=== PATIENT | male | born 1950 | race African-American/Black ===

== ENCOUNTER 2017-05-24 10:05 | Emergency (ER) | payer MEDICARE, OTHER ==
[~2017-05-24] VITALS: Ht 175.3 cm; Wt 81.8 kg
[~2017-05-24 10:05] MED LIST: GLAUCOMA EYE DROP; INDOCIN50 MG PO; NORCO 325 MG-51 TAB PO
[2017-05-24 10:21] VITALS: TEMP 97.8
[2017-05-24 11:25] LABS: BASO % 0.7 % (0.0-2.0); EOS # 0.1 (0.0-0.7); EOS % 1.7 % (0-4.0); GRAN # 2.7 (1.4-6.5); GRAN % 51.3 % (42.2-75.2); HEMATOCRIT 44.2 % (42.0-52.0); HEMOGLOBIN 14.5 g/dl (13.5-18.0); LYMPH # 2.1 (1.2-3.4); LYMPH % 38.4 % (20.0-51.0); MEAN CELL VOLUME 83 fl (80.0-100.0); MEAN CORPUSCULAR HEMOGLOBIN 27 pg (27.0-31.0); MEAN CORPUSCULAR HGB CONC 33 g/dl (33.0-37.0); MEAN PLATELET VOLUME 10.2 fl (7.4-10.4); MONO # 0.4 (0.1-0.6); MONO % 7.7 % (1.7-9.3); PLATELET COUNT 229 K/mm3 (130-400); RED BLOOD COUNT 5.32 M/mm3 (4.20-5.60); REDCELL DISTRIBUTION WIDTH-CV 12.8 % (11.5-14.5)
[2017-05-24 11:40] LABS: ALANINE AMINOTRANSFERASE 39 U/L (21-72); ALBUMIN 4.8 gm/dL (3.5-5.0); ALKALINE PHOSPHATASE 121 U/L (50-136); ANION GAP 12 mmol/L (7-16); AST,SGOT 21 U/L (15-37); BILIRUBIN,TOTAL 0.5 mg/dL (0.0-1.0); BLOOD UREA NITROGEN 18 mg/dL (9-20); CALCIUM 10.2 mg/dL (8.4-10.2); CARBON DIOXIDE 23 mmol/L (22-30); CHLORIDE 101 mmol/L (98-107); CREATININE, serum 0.99 mg/dL (0.66-1.25); GLUCOSE 361 mg/dL (74-106); POTASSIUM 4.5 mmol/L (3.4-5.0); SODIUM 135 mmol/L (137-145); TOTAL PROTEIN 8.1 gm/dL (6.4-8.2)
[2017-05-24 11:44] LABS: C-REACTIVE PROTEIN < 0.5 mg/dL (0.0-0.9)
[2017-05-24 11:52] LABS: ERYTHROCYTE SEDIMENTATION RATE 11 mm/hr (0-30)
[2017-05-24] MEDS ORDERED: NORCO 325 MG-7.1 TAB PO (11:58)
[2017-05-24 13:15] LABS: COLLECTION METHOD CLEAN CATCH
[2017-05-24 13:20] LABS: MUCOUS Present /lpf; PH 5 (5-8); SQUAMOUS EPITHELIAL None Seen /hpf; URINE APPEARANCE Clear; URINE BACTERIA None Seen /hpf; URINE BILIRUBIN Negative (NEGATIVE); URINE BLOOD Negative (NEGATIVE); URINE COLOR Yellow; URINE GLUCOSE 3+ (NEGATIVE); URINE KETONE Trace (NEGATIVE); URINE LEUKOCYTE ESTERASE Negative (NEGATIVE); URINE NITRATE Negative (NEGATIVE); URINE PROTEIN(semi-quant) Negative (NEGATIVE); URINE RBC 0-2 /hpf; URINE UROBILINOGEN Negative (NEGATIVE)
[2017-05-24 13:44] VITALS: BP 145/89; PULSE 90
== END 2017-05-24 13:46 | disposition home or self-care (01) ==
LOC: COL.ER 10:05
PROVIDERS: Physician Assistant
DX: M25.562 Pain in left knee (principal); I10 Essential (primary) hypertension; E11.9 Type 2 diabetes mellitus without complications; Z79.4 Long term (current) use of insulin
CPT/HCPCS: J1885

== ENCOUNTER 2019-04-05 11:44 | Day surgery (SDC) | payer OTHER ==
[2019-04-05] VITALS (297 sets, daily range): BP systolic 134–161; BP diastolic 78–102; PULSE 68–103; TEMP 97.5–98.1; O2SAT 95–100
[~2019-04-05] VITALS: Ht 175.3 cm; Wt 80.7 kg
[~2019-04-05 11:44] MED LIST changes: +NORCO 325 MG-7.1 TAB PO
[2019-04-05] MEDS ORDERED: NORVASC 5MG5 MG/TAB PO (12:22)
[2019-04-05] MEDS ORDERED: LIPITOR20 MG PO (12:23)
[2019-04-05] MEDS ORDERED: COSOPT 2%-0.5%10 ML OU (12:24)
[2019-04-05] MEDS ORDERED: ALPHAGAN OPHTH D5 ML OU (12:24)
[2019-04-05] MEDS ORDERED: LANTUS SOLOS100 U/ML SQ (12:26)
[2019-04-05] MEDS ORDERED: NOVOLIN 70100 UNIT/2 SQ (12:26)
[2019-04-05] MEDS ORDERED: ZESTRIL40 MG PO (12:27)
[2019-04-05] MEDS ORDERED: XALATAN EYE DROPS OD (12:27)
[2019-04-05] MEDS ORDERED: ASPIRIN E.C. 8181 MG PO (12:28)
[2019-04-05 12:46] LABS: HEMATOCRIT 40.2 % (42.0-52.0); HEMOGLOBIN 13.1 g/dl (13.5-18.0); MEAN CELL VOLUME 83 fl (80.0-100.0); MEAN CORPUSCULAR HEMOGLOBIN 27 pg (27.0-31.0); MEAN CORPUSCULAR HGB CONC 33 g/dl (33.0-37.0); MEAN PLATELET VOLUME 9.8 fl (7.4-10.4); PLATELET COUNT 257 K/mm3 (130-400); RED BLOOD COUNT 4.82 M/mm3 (4.20-5.60); REDCELL DISTRIBUTION WIDTH-CV 13.2 % (11.5-14.5)
[2019-04-05 12:49] LABS: PROTHROMBIN TIME 12.2 SECONDS (9.7-12.8)
[2019-04-05 12:51] LABS: PARTIAL THROMBOPLASTIN TIME 27.6 SECONDS (26.0-37.0)
[2019-04-05 12:53] LABS: CALCIUM 9.5 mg/dL (8.4-10.2); CREATININE, serum 0.9 (0.66-1.25); POTASSIUM 4.1 mmol/L (3.4-5.0)
--- NOTE | 2019-04-05 13:53 | NUR ---
Dr. Pedersen requested that the pt not be brought back to the quality control lab tech for his scheduled outpatient heart cath at this time. Pt updated on delay and verbalized understanding and wished to wait on Dr. ePdersen.
--- NOTE | 2019-04-05 14:29 | NUR ---
SEE MERGE REPORT FOR MEDICATOIN ADMINISTRATION WELL INTRA/POST SEDATION ASSESSMENTS.
--- NOTE | 2019-04-05 15:33 | NUR ---
PATIENT RECEIVED FROM COMB TENDER TO ICU ROOM 6 VIA BED. PATIENT AWAKE, ALERT, AND ORIENTED. PATIENT TRANSFERRED BY CARMEN LILLY, COMB TENDER NURSE. PATIENT DENIES ANY PAIN, SOB, DIZZINESS, ETC AT THIS TIME. TR BAND PRESENT TO RIGHT RADIAL WITH 13CC OF AIR.
--- NOTE | 2019-04-05 16:45 | NUR ---
CALLED DR HOLM TO ASK ABOUT RESUMIMG PT'S HOME MEDICATIONS FOR BP HIS BP HAS BEEN 140/90.
--- NOTE | 2019-04-05 19:30 | NUR ---
Received report from VIJAYA Weiss. Released 3mL of air from TR band during report. At this time, 7mL of air remains in band. Patient is tolerating well. There is some slight puffiness above and below band, however, pulse is still palpable and skin remains soft to palpation with no bruise formation. Patient reports 5/10 pain in the right wrist, stating it's pressure-related. Patient denies presence of any other pain or discomfort at this time. Will continue to monitor.
--- NOTE | 2019-04-05 21:30 | NUR ---
Remaining 4mLs of air removed from TR band at this time. TR band is removed from patient's puncture site and replaced with a bandaid. Site is clean, dry, and intact and soft to palpation with no hematoma formation. Skin above and below site of TR band is still slightly puffy. Patient reports pressure-related pain has decreased with the release of air. Will continue to monitor.
[2019-04-06] VITALS (276 sets, daily range): BP systolic 128–150; BP diastolic 74–100; PULSE 74–95; TEMP 97.5–97.6; O2SAT 73–100
--- NOTE | 2019-04-06 07:30 | NUR ---
Pt is awake and A/Ox4. He denies pain or discomfort. Right radial cath site is soft and free of hematoma, bandaid in place. Dr. Pedersen here to discuss discharge. Pt denies any other needs.
--- NOTE | 2019-04-06 07:38 | NUR ---
Bedside report provided to VIJAYA Bustamante.
[2019-04-06 07:49] LABS: BASO # 0.1 (0.0-0.2); BASO % 1.1 % (0.0-2.0); EOS # 0.2 (0.0-0.7); EOS % 3.7 % (0-4.0); GRAN # 2.7 (1.4-6.5); GRAN % 50.9 % (42.2-75.2); HEMATOCRIT 41.4 % (42.0-52.0); HEMOGLOBIN 13.4 g/dl (13.5-18.0); LYMPH # 1.9 (1.2-3.4); LYMPH % 35.1 % (20.0-51.0); MEAN CELL VOLUME 83 fl (80.0-100.0); MEAN CORPUSCULAR HEMOGLOBIN 27 pg (27.0-31.0); MEAN CORPUSCULAR HGB CONC 32 g/dl (33.0-37.0); MEAN PLATELET VOLUME 10.3 fl (7.4-10.4); MONO # 0.5 (0.1-0.6); PLATELET COUNT 261 K/mm3 (130-400); RED BLOOD COUNT 4.97 M/mm3 (4.20-5.60); REDCELL DISTRIBUTION WIDTH-CV 13.3 % (11.5-14.5)
[2019-04-06 08:01] LABS: CALCIUM 9.4 mg/dL (8.4-10.2); CREATININE, serum 0.84 (0.66-1.25); POTASSIUM 3.9 mmol/L (3.4-5.0)
[2019-04-06] MEDS ORDERED: ASPIRIN 81M81 MG/TA2 PO (10:31)
[2019-04-06] MEDS ORDERED: PLAVIX 75MG TAB75 MG PO (10:31)
--- NOTE | 2019-04-06 11:51 | NUR ---
Pt was discharged home from hospital. All discharge instructions and paperwork was reviewed with pt and his . Both expressed understanding. Saline lock was removed, cathter tip intact. New prescriptions called to [facility] in [place] upon pt request due to [facility] being closed. Pt was escorted out of the hospital by staff.
== END 2019-04-06 11:52 | disposition home or self-care (01) ==
LOC: COL.CAR 11:44 → ICU 15:40 → COL.CAR 16:11 → ICU 16:11 → COL.CAR 16:12 → ICU 04-06 11:52 → COL.CAR 04-06 11:52
PROVIDERS: Internal Medicine Interventional Cardiology
DX: I25.10 Atherosclerotic heart disease of native coronary artery without angina pectoris (principal); D64.9 Anemia, unspecified
CPT/HCPCS: C1725; C1769; C1874; C1887; C9600; J1644; J2250; J3010; Q9967

== ENCOUNTER 2020-08-04 13:13 | Emergency (ER) | payer MEDICARE ==
[~2020-08-04] VITALS: Ht 175.3 cm; Wt 70.5 kg
[~2020-08-04 13:13] MED LIST changes: +ALPHAGAN OPHTH D5 ML OU; +ASPIRIN 81M81 MG/TA2 PO; +ASPIRIN E.C. 8181 MG PO; +COSOPT 2%-0.5%10 ML OU; +LANTUS SOLOS100 U/ML SQ; +LIPITOR20 MG PO; +NORVASC 5MG5 MG/TAB PO; +NOVOLIN 70100 UNIT/2 SQ; +PLAVIX 75MG TAB75 MG PO; +XALATAN EYE DROPS OD; +ZESTRIL40 MG PO
[2020-08-04 13:27] VITALS: TEMP 96.9
[2020-08-04 14:43] LABS: BASO % 0.5 % (0.0-2.0); EOS # 0.2 (0.0-0.7); EOS % 2.3 % (0-4.0); GRAN % 53.9 % (42.2-75.2); HEMATOCRIT 46.2 % (42.0-52.0); HEMOGLOBIN 14.8 g/dl (13.5-18.0); LYMPH # 2.6 (1.2-3.4); LYMPH % 34.5 % (20.0-51.0); MEAN CELL VOLUME 84 fl (80.0-100.0); MEAN CORPUSCULAR HEMOGLOBIN 27 pg (27.0-31.0); MEAN CORPUSCULAR HGB CONC 32 g/dl (33.0-37.0); MEAN PLATELET VOLUME 9.9 fl (7.4-10.4); MONO # 0.6 (0.1-0.6); MONO % 8.5 % (1.7-9.3); PLATELET COUNT 314 K/mm3 (130-400); REDCELL DISTRIBUTION WIDTH-CV 14.4 % (11.5-14.5)
[2020-08-04 14:52] LABS: ALBUMIN 4.4 gm/dL (3.5-5.0); CALCIUM 9.7 mg/dL (8.4-10.2)
[2020-08-04 15:08] LABS: BILIRUBIN,TOTAL 0.6 mg/dL (0.0-1.0); POTASSIUM 4.6 mmol/L (3.4-5.0)
[2020-08-04 15:56] VITALS: BP 113/81; PULSE 89
== END 2020-08-04 15:56 | disposition home or self-care (01) ==
LOC: COL.ER 13:13
PROVIDERS: Physician Assistant
DX: E11.40 Type 2 diabetes mellitus with diabetic neuropathy, unspecified (principal); M10.9 Gout, unspecified; Z95.9 Presence of cardiac and vascular implant and graft, unspecified; Z87.891 Personal history of nicotine dependence; Z79.4 Long term (current) use of insulin; Z79.02 Long term (current) use of antithrombotics/antiplatelets; Z79.82 Long term (current) use of aspirin